=== PATIENT | male | born 1980 | race African-American/Black ===

== ENCOUNTER 2019-11-20 06:54 | Emergency (ER) | payer SELFPAY ==
[2019-11-20] MEDS ORDERED: Ibuprofen 200 MG TAB ONE (07:12)
[2019-11-20] MEDS ORDERED: Acetaminophen 500 MG TAB ONE (07:12)
== END 2019-11-20 08:31 | disposition home or self-care (01) ==
LOC: ERS 06:54
DX: G40.409 Other generalized epilepsy and epileptic syndromes, not intractable, without status epilepticus (principal); S01.512A Laceration without foreign body of oral cavity, initial encounter; F17.210 Nicotine dependence, cigarettes, uncomplicated; W50.3XXA Accidental bite by another person, initial encounter; Z79.899 Other long term (current) drug therapy
CPT/HCPCS: 96365; Q2009